=== PATIENT | male | born 1990 | race African-American/Black ===

== ENCOUNTER 2017-09-30 10:28 | Emergency (ER) | payer SELFPAY ==
[~2017-09-30] VITALS: Ht 175.3 cm; Wt 61.5 kg
[2017-09-30] MEDS ORDERED: CYCL-331 PO (12:10)
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
[2017-09-30 12:56] VITALS: BP 135/81
== END 2017-09-30 12:56 | disposition home or self-care (01) ==
LOC: ER 10:28
DX: M54.2 Cervicalgia (principal); M62.830 Muscle spasm of back; F17.200 Nicotine dependence, unspecified, uncomplicated
CPT/HCPCS: 99283

== ENCOUNTER 2019-01-14 10:48 | Emergency (ER) | payer OTHER ==
[~2019-01-14 10:48] MED LIST: CYCL-331 PO
[2019-01-14 11:17] VITALS: BP 101/58
--- NOTE | 2019-01-14 11:48 | RAD ---
Three-view left ankle dated 01/14/2019. No comparison available. Clinical data indication: Pain after injury. FINDINGS: Three-view left ankle show normal bony alignment. No displaced fracture. No acute osseous or articular abnormality. The talar dome is intact. IMPRESSION: No acute findings. Electronically signed by: Shorty Ibanez MD (01/14/2019 11:45 AM) [facility] [place]
[2019-01-14] MEDS ORDERED: TRAM50TA PO (12:00)
--- NOTE | 2019-01-14 12:01 | PHYS DOC ---
Past History Past Medical History: No Pertinent History Past Surgical History: No Surgical History Alcohol Use: None Drug Use: None Adult General Chief Complaint Chief Complaint: ANKLE PROBLEM [facility] HPI 28-year-old male presents with left foot pain around the calcaneus. The patient was doing back flips 3 days ago and he came down hard and landed on the back of his feet, with most of the weight on the left foot. Since that time, he said a lot of pain in this area. He has some difficulty walking, but he can walk if he modifies his gait. He thought it would go away, but it does not seem be getting better so is concern for fracture. The patient is taking Tylenol and ibuprofen at home. He denies any other injuries or complaints. No history of fractures of this foot.[] Review of Systems Review of Systems Constitutional: Denies fever or chills [] Eyes: Denies change in visual acuity, redness, or eye pain [] HENT: Denies nasal congestion or sore throat [] Respiratory: Denies cough or shortness of breath [] Cardiovascular: No additional information not addressed in HPI [] GI: Denies abdominal pain, nausea, vomiting, bloody stools or diarrhea [] : Denies dysuria or hematuria [] Musculoskeletal: Left foot pain[] Integument: Denies rash or skin lesions [] Neurologic: Denies headache, focal weakness or sensory changes [] Endocrine: Denies polyuria or polydipsia [] All other systems were reviewed and found to be within normal limits, except as documented in this note. Allergies Allergies Allergies Coded Allergies Type Severity Reaction Last Updated Verified No Known Drug Allergies 09/30/17 No Physical Exam Physical Exam Constitutional: Well developed, well nourished, no acute distress, non-toxic appearance. [] HENT: Normocephalic, atraumatic, bilateral external ears normal, oropharynx moist, no oral exudates, nose normal. [] Eyes: PERRLA, EOMI, conjunctiva normal, no discharge. [] Neck: Normal range of motion, no tenderness, supple, no stridor. [] Cardiovascular:Heart rate regular rhythm, no murmur [] Lungs & Thorax: Bilateral breath sounds clear to auscultation [] Abdomen: Bowel sounds normal, soft, no tenderness, no masses, no pulsatile masses. [] Skin: Warm, dry, no erythema, no rash. [] Back: No tenderness, no CVA tenderness. [] Extremities: Patient has tenderness with deep palpation of the left foot under the calcaneus. No obvious deformity or ecchymosis[] Neurologic: Alert and oriented X 3, normal motor function, normal sensory function, no focal deficits noted. [] Psychologic: Affect normal, judgement normal, mood normal. [] Current Patient Data Vital Signs Vital Signs Date Time Temp Pulse Resp B/P (MAP) Pulse Ox O2 Delivery O2 Flow Rate FiO2 01/14/19 11:17 98.0 92 18 99 Room Air EKG EKG [] Radiology/Procedures Radiology/Procedures [] Impressions: Three-view left ankle dated 01/14/2019. No comparison available. Clinical data indication: Pain after injury. FINDINGS: Three-view left ankle show normal bony alignment. No displaced fracture. No acute osseous or articular abnormality. The talar dome is intact. IMPRESSION: No acute findings. Electronically signed by: Cuca Ibanez MD (01/14/2019 11:45 AM) [facility] [place] DICTATED AND SIGNED BY: CUCA IBANEZ MD DATE: 01/14/19 1145 CC: GIACOMO HOPKINS DO; PCP,NO ~ Course & Med Decision Making Course & Med Decision Making Pertinent Labs and Imaging studies reviewed. (See chart for details) Patient's x-rays negative for fracture. Based on history and physical exam, I believe he scattered deep contusion of the left foot. I will give him a short course of tramadol for his pain. I checked the narcotic database and he only has one entry in the last couple years. I've also advised to continue to take 600 mg of ibuprofen 3 times a day as an anti-inflammatory. He is stable for discharge at this time. [] Dragon Disclaimer Dragon Disclaimer This electronic medical record was generated, in whole or in part, using a voice recognition dictation system. Departure Departure: Impression: Primary Impression: Contusion of foot, left Disposition: 01 HOME, SELF-CARE Condition: STABLE Referrals: PCP,NO (PCP) Patient Instructions: Foot Contusion, [id number] Scripts Tramadol Hcl (TRAMADOL HCL) 50 Mg Tablet 50 MG PO PRN Q6HRS PRN for PAIN, #14 TAB Prov: GIACOMO HOPKINS DO 01/14/19 Problem Qualifiers Primary Impression: Contusion of foot, left Encounter type: initial encounter Qualified Codes: S90.32XA - Contusion of left foot, initial encounter GIACOMO HOPKINS DO Jan 14, 2019 12:01
== END 2019-01-14 12:08 | disposition home or self-care (01) ==
LOC: ER 10:48
DX: S90.32XA Contusion of left foot, initial encounter (principal); X50.9XXA Other and unspecified overexertion or strenuous movements or postures, initial encounter; Y93.89 Activity, other specified; Y92.89 Other specified places as the place of occurrence of the external cause; Y99.8 Other external cause status
CPT/HCPCS: 73610; 99284

== ENCOUNTER 2019-03-21 12:12 | Emergency (ER) | payer SELFPAY ==
[~2019-03-21] VITALS: Ht 172.7 cm; Wt 63.5 kg
[~2019-03-21 12:12] MED LIST changes: +TRAM50TA PO
--- NOTE | 2019-03-21 12:41 | PHYS DOC ---
Past History Past Medical History: No Pertinent History Past Surgical History: No Surgical History Alcohol Use: None Drug Use: None Adult General Chief Complaint Chief Complaint: SEXUALLY TRANSMITTED DISEASE HPI HPI 1-year-old male presents to emergency department with complaints of gonorrhea/cardiac exposure. Patient states he was called yesterday when the health department, he has been having symptoms over the last couple days. His last exposure approximately 2 weeks ago. He states he went to the health Department however they stated they could not write prescriptions today. He does complain of burning with urination. Denies any nausea, vomiting. Review of Systems Review of Systems Constitutional: Denies fever or chills [] Respiratory: Denies cough or shortness of breath [] Cardiovascular: No additional information not addressed in HPI [] GI: Denies abdominal pain, nausea, vomiting, bloody stools or diarrhea [] : Dysuria Integument: Denies rash or skin lesions [] Neurologic: Denies headache, focal weakness or sensory changes [] All other systems were reviewed and found to be within normal limits, except as documented in this note. Allergies Allergies Allergies Coded Allergies Type Severity Reaction Last Updated Verified No Known Drug Allergies 09/30/17 No Physical Exam Physical Exam Constitutional: Well developed, well nourished, no acute distress, non-toxic appearance. [] Cardiovascular:Heart rate regular rhythm, no murmur [] Lungs & Thorax: Bilateral breath sounds clear to auscultation [] Abdomen: Bowel sounds normal, soft, no tenderness, no masses, no pulsatile masses. [] Skin: Warm, dry, no erythema, no rash. [] Neurologic: Alert and oriented X 3, no focal deficit Current Patient Data Vital Signs Temperature (Fahrenheit): * 98.0 degrees F (97.6-99.5) Patient Temperature * 98.0 degrees F (97.5-99.5) Temperature Source * Oral Blood Pressure Systolic * 147 mm Hg (100-140) H Blood Pressure Diastolic * 80 mm Hg (60-100) Blood Pressure Mean * 102 mm Hg Pulse Rate * 64 beats per minute (60-90) Respiratory Rate * 16 breaths per minute (12-24) EKG EKG [] Radiology/Procedures Radiology/Procedures [] Course & Med Decision Making Course & Med Decision Making Pertinent Labs and Imaging studies reviewed. (See chart for details) Patient presents to the emergency department with exposure to gonorrhea/chlamydia. Patient received phone call from health Department regarding diagnosis. They were unable to provide prescriptions, patient presented the ER for further evaluation. Rocephin 250 mg IM, azithromycin 1 g by mouth provided in the ER. Instructions regarding condom use and sexual transmitted infections was provided Dragon Disclaimer Dragon Disclaimer This electronic medical record was generated, in whole or in part, using a voice recognition dictation system. Departure Departure: Impression: Primary Impression: Gonorrhea Additional Impression: Chlamydia Disposition: HOME, SELF-CARE Condition: STABLE Referrals: PCP,NO (PCP) Patient Instructions: Sexually Transmitted Disease Problem Qualifiers MAYELA KUMAR MD Mar 21, 2019 12:40
[2019-03-21] MEDS ORDERED: AZITHROMYCIN 250 MG TABLET. PO ONE (13:00)
[2019-03-21] MEDS ORDERED: cefTRIAXone IM 250 MG VIAL IM ONE (13:00)
[2019-03-21 13:15] VITALS: BP 144/102
== END 2019-03-21 13:12 | disposition home or self-care (01) ==
LOC: ER 12:12
DX: A54.9 Gonococcal infection, unspecified (principal); A74.9 Chlamydial infection, unspecified
CPT/HCPCS: 96372; 99283; J0456; J0696

== ENCOUNTER 2020-01-29 09:01 | Emergency (ER) | payer SELFPAY ==
[~2020-01-29] VITALS: Ht 172.7 cm; Wt 60.5 kg
--- NOTE | 2020-01-29 09:10 | PHYS DOC ---
Past History Past Medical History: No Pertinent History Additional Past Surgical Histo: Dental surgery Smoking: Cigarettes Alcohol Use: None Drug Use: Marijuana General Adult EDM: Chief Complaint: Burning with urination HPI: HPI: 29-year-old male presents with report of penile discharge x 4 days. Reports bur wei with urination which started last night. Denies fever or chills. Reports concern for possible STD. Patient reports penile discharge is yellow in nature. Reports has had history of prior chlamydia and gonorrhea. Patient was tested by the health department on Wednesday but has yet to be treated or get the results. Patient reports symptoms now worse and is very concerned that he needs treatment. Denies rash. Review of Systems: Review of Systems: Constitutional: Denies fever or chills Eyes: Denies redness or eye pain HENT: Denies nasal congestion or sore throat Respiratory: Denies cough or shortness of breath Cardiovascular: Denies chest pain or palpitations GI: Denies abdominal pain, nausea, or vomiting : Reports dysuria and penile discharge Musculoskeletal: Denies back pain or joint pain Integument: Denies rash or skin lesions Neurologic: Denies headache, focal weakness or sensory changes Complete systems were reviewed and found to be within normal limits, except as documented in this note. Allergies: Allergies: Allergies Coded Allergies Type Severity Reaction Last Updated Verified No Known Drug Allergies 09/30/17 No Physical Exam: PE: Constitutional: Well developed, well nourished, no acute distress, non-toxic appearance HENT: Normocephalic, atraumatic Eyes: Conjunctiva normal, no discharge Neck: Normal range of motion, supple Lungs & Thorax: No respiratory distress, equal chest rise and fall Skin: Warm, dry, no erythema, no rash : Uncircumcised male, small amount of clear discharge noted, cremasteric reflex noted bilaterally Extremities: ROM intact, no edema Neurologic: Alert and oriented X 3, no focal deficits noted Psychologic: Affect normal, judgment normal EKG: EKG: [] Radiology/Procedures: Radiology/Procedures: [] Course & Med Decision Making: Course & Med Decision Making Pertinent Lab studies reviewed. (See chart for details) Patient presents with concern for possible STD. Chlamydia/gonorrhea cultures pending. Empiric treatment provided. Patient stable for discharge with outpatient follow-up with PCP. Discussed findings and plan with patient, who acknowledges understanding and agreement. [place] Disclaimer: [place] Disclaimer: This electronic medical record was generated, in whole or in part, using a voice recognition dictation system. Departure Departure: Impression: Primary Impression: Concern about STD in male without diagnosis Disposition: 01 HOME/RESIDENCE PRIOR TO ADM Condition: STABLE Referrals: PCP,NO (PCP) Patient Instructions: Sexually Transmitted Disease, [id number] Justification of Admission: Justification of Admission: Justification of Admission Dx: N/A CUCA VALERIO DO Jan 29, 2020 09:10
[2020-01-29] MEDS ORDERED: cefTRIAXone IM 250 MG VIAL IM ONE (09:30)
[2020-01-29] MEDS ORDERED: AZITHROMYCIN 250 MG TABLET. PO ONE (09:30)
[2020-01-29] MEDS ORDERED: LIDOCAINE 1% Multi-Dose 20 ML VIAL. ONE (09:50)
[2020-01-29 10:36] VITALS: BP 123/82
[2020-01-29 10:40] LABS: CLARITY,URINE HAZY; COLOR,URINE YELLOW
[2020-01-29 10:41] LABS: BACTERIA,URINE 0 /HPF (0-FEW); BILIRUBIN,URINE NEG (NEG); GLUCOSE,URINE NEG (NEG); NITRITE,URINE NEG (NEG); SQUAMOUS EPITHELIAL CELL,UR OCC /LPF; UROBILINOGEN,URINE >=8.0 mg/dL (0.2 mg/dL); WBC,URINE >40 /HPF (0-4)
== END 2020-01-29 10:38 | disposition home or self-care (01) ==
LOC: ER 09:01
DX: R30.9 Painful micturition, unspecified (principal); R36.9 Urethral discharge, unspecified; F17.210 Nicotine dependence, cigarettes, uncomplicated; F12.90 Cannabis use, unspecified, uncomplicated; Z98.890 Other specified postprocedural states; Z20.2 Contact with and (suspected) exposure to infections with a predominantly sexual mode of transmission
CPT/HCPCS: 36415; 81001; 87491; 87591; 96372; 99283; J0456; J0696

== ENCOUNTER 2020-03-24 20:06 | Emergency (ER) | payer SELFPAY ==
[~2020-03-24] VITALS: Ht 172.7 cm; Wt 61.0 kg
[2020-03-24 20:10] VITALS: BP 135/63
--- NOTE | 2020-03-24 21:08 | RAD ---
Exam: Right wrist 3 views. Right hand 3 views INDICATION: Fall onto right hand TECHNIQUE: Frontal, lateral and oblique views of the right wrist and right hand Comparisons: None FINDINGS: Wrist: Bone mineralization is normal. Mild soft tissue swelling overlying the wrist. Mildly displaced triquetral fracture. Joint spaces are well-maintained. Hand: Bone mineralization is normal. No acute or healed fractures. Soft tissues are unremarkable. Joint spaces are well-maintained. IMPRESSION: 1. Mildly displaced triquetral fracture. 2. No acute osseous abnormality of the right hand. Electronically signed by: Yao Mckeon MD (03/24/2020 9:06 PM) [id number]
[2020-03-24] MEDS ORDERED: MORPHINE SULFATE 10 MG/ML SYRINGE. SQ ONE (21:30)
--- NOTE | 2020-03-24 21:36 | PHYS DOC ---
Past History Past Medical History: No Pertinent History Past Surgical History: No Surgical History Additional Past Surgical Histo: Dental surgery Smoking: Cigarettes Alcohol Use: None Drug Use: Marijuana General Adult EDM: Chief Complaint: UPPER EXTREMITY INJURY HPI: HPI: ".. I was just playing some foot ball with friends.. and slipped.. and as I went down .. I was trying to catch myself .. and I injured this right hand.. This was about 2:00 but I am still hurting" Patient is a 29 year old male who presents with right wrist injury playing foot ball at 1400. Patient has obvious swelling of right wrist and hand. Distal capillary refill equal left hand. Distal sensation is equal to left hand. Patient is up-to-date with vaccinations. No recent travel. No history immunosuppression. Patient has taken [id number] Tylenol for pain. Patient normally healthy. No history of other injury. Review of Systems: Review of Systems: Constitutional: Denies fever or chills Eyes: Denies change in visual acuity HENT: Denies nasal congestion or sore throat Respiratory: Denies cough or shortness of breath Cardiovascular: Denies chest pain or edema GI: Denies abdominal pain, nausea, vomiting, bloody stools or diarrhea : Denies dysuria Musculoskeletal: Complains of right hand and wrist pain Integument: Denies rash Neurologic: Denies headache, focal weakness or sensory changes Endocrine: Denies polyuria or polydipsia Lymphatic: Denies swollen glands Psychiatric: Denies depression or anxiety Heart Score: Risk Factors: Risk Factors: DM, Current or recent (<one month) smoker, HTN, HLP, family history of CAD, obesity. Risk Scores: Score 0 - 3: 2.5% MACE over next 6 weeks - Discharge Home Score 4 - 6: 20.3% MACE over next 6 weeks - Admit for Clinical Observation Score 7 - 10: 72.7% MACE over next 6 weeks - Early Invasive Strategies Family History: Family History: Noncontributory to presentation Current Medications: Current Meds: Current Medications Medications (Trade) Dose Ordered Sig/Ronni Start Time Stop Time Status Last Admin Dose Admin Morphine Sulfate (Morphine 10mg Syringe) 10 mg 1X ONCE 03/24/20 21:30 03/24/20 21:31 DC 03/24/20 21:23 10 MG Allergies: Allergies: Allergies Coded Allergies Type Severity Reaction Last Updated Verified No Known Drug Allergies 01/29/20 No Physical Exam: PE: Constitutional: Well developed, well nourished, moderate acute distress, non- toxic appearance. [] HENT: Normocephalic, atraumatic, bilateral external ears normal, oropharynx moist, no oral exudates, nose normal. [] Eyes: PERRLA, EOMI, conjunctiva normal, no discharge. [] Neck: Normal range of motion, no tenderness, supple, no stridor. [] Cardiovascular:Heart rate regular rhythm, no murmur [] Lungs & Thorax: Bilateral breath sounds clear to auscultation [] Abdomen: Bowel sounds normal, soft, no tenderness, no masses, no pulsatile mas ses. [] Skin: Warm, dry, no erythema, no rash. Multiple tattoos. Back: No tenderness, no CVA tenderness. [] Extremities: No tenderness, no cyanosis, no clubbing, ROM intact, no edema. Except findings in right hand and wrist Findings in right wrist and hand as per HPI Neurologic: Alert and oriented X 3, normal motor function, normal sensory function, no focal deficits noted. [] Psychologic: Affect anxious, judgement normal, mood normal. [] Current Patient Data: Vital Signs: Vital Signs Date Time Temp Pulse Resp B/P (MAP) Pulse Ox O2 Delivery O2 Flow Rate FiO2 03/24/20 21:23 20 03/24/20 20:10 98.4 72 135/63 (87) 98 Room Air EKG: EKG: [] Radiology/Procedures: Radiology/Procedures: [address] [address] IMAGING REPORT Signed PATIENT: CHESTER BE LACCOUNT: [id number] : 1990 LOCATION: ER AGE: 29 SEX: M EXAM STATUS: REG ER ORD. PHYSICIAN: ELEN ASENCIO MD REASON: FALL ONTO RIGHT HAND PROCEDURE: WRIST 3V RIGHT Exam: Right wrist 3 views. Right hand 3 views INDICATION: Fall onto right hand TECHNIQUE: Frontal, lateral and oblique views of the right wrist and right hand Comparisons: None FINDINGS: Wrist: Bone mineralization is normal. Mild soft tissue swelling overlying the wrist. Mildly displaced triquetral fracture. Joint spaces are well-maintained. Hand: Bone mineralization is normal. No acute or healed fractures. Soft tissues are unremarkable. Joint spaces are well-maintained. IMPRESSION: 1. Mildly displaced triquetral fracture. 2. No acute osseous abnormality of the right hand. Electronically signed by: Yao Gould MD (03/24/2020 9:06 PM) [id number] DICTATED AND SIGNED BY: AYO GOULD MD DATE: 03/24/202105 CC: [facility]; ELEN ASENCIO MD; PCP,NO ~ [][place] [address] IMAGING REPORT Signed PATIENT: CHESTER BE LACCOUNT: [id number] : 1990 LOCATION: ER AGE: 29 SEX: M EXAM STATUS: REG ER ORD. PHYSICIAN: ELEN ASENCOI MD REASON: FALL ONTO RIGHT HAND PROCEDURE: HAND RIGHT 3V Exam: Right wrist 3 views. Right hand 3 views INDICATION: Fall onto right hand TECHNIQUE: Frontal, lateral and oblique views of the right wrist and right hand Comparisons: None FINDINGS: Wrist: Bone mineralization is normal. Mild soft tissue swelling overlying the wrist. Mildly displaced triquetral fracture. Joint spaces are well-maintained. Hand: Bone mineralization is normal. No acute or healed fractures. Soft tissues are unremarkable. Joint spaces are well-maintained. IMPRESSION: 1. Mildly displaced triquetral fracture. 2. No acute osseous abnormality of the right hand. Electronically signed by: Yao Gould MD (03/24/2020 9:06 PM) [id number] DICTATED AND SIGNED BY: YAO GOULD MD DATE: 03/24/202105 CC: [facility]; ELEN ASENCIO MD; PCP,NO ~ Course & Med Decision Making: Course & Med Decision Making Pertinent Labs and Imaging studies reviewed. (See chart for details) Patient take Tylenol and ibuprofen for pain pain. For marked pain may take Vicoprofen up to 4 times a day. Use ice packs as needed elevate. Elevate. For marked pain may be take Vicoprofen up to 4 times a day. Will need follow-up with orthopedics. Distal neurovascular intact after application of gutter splint. Patient return if any concerns. Patient to follow-up with orthopedics. Patient return if any concerns. Must keep hand elevated. Impression: 1. Right hand and wrist sprain 2. Triquetral Fx with min. Displacement- right hand [] Dragon Disclaimer: Dragon Disclaimer: This electronic medical record was generated, in whole or in part, using a voice recognition dictation system. Departure Departure: Disposition: HOME/RESIDENCE PRIOR TO ADM Condition: STABLE Referrals: PCP,NO (PCP) Scripts Hydrocodone/Ibuprofen (HYDROCODONE-IBUPROFEN 7.5-200 ) 1 Each Tablet 1 TAB PO PRN Q6HRS PRN for PAIN, #30 TAB 0 Refills Prov: ELEN ASENCIO MD 03/24/20 Justification of Admission: Justification of Admission: Justification of Admission Dx: N/A Dragon Disclaimer This chart was dictated in whole or in part using Voice Recognition software in a busy, high-work load, and often noisy Emergency Department environment. It may contain unintended and wholly unrecognized errors or omissions. Dragon Disclaimer This chart was dictated in whole or in part using Voice Recognition software in a busy, high-work load, and often noisy Emergency Department environment. It may contain unintended and wholly unrecognized errors or omissions. ELEN ASENCIO MD Mar 24, 2020 21:36
[2020-03-24] MEDS ORDERED: HYDR-1179 PO (21:39)
== END 2020-03-24 21:45 | disposition home or self-care (01) ==
LOC: ER 20:06
DX: S62.111A Displaced fracture of triquetrum [cuneiform] bone, right wrist, initial encounter for closed fracture (principal); F17.210 Nicotine dependence, cigarettes, uncomplicated; W18.39XA Other fall on same level, initial encounter; Y93.61 Activity, american tackle football; Y92.89 Other specified places as the place of occurrence of the external cause; Y99.8 Other external cause status
CPT/HCPCS: 29125; 73110; 73130; 96372; 99284; J2270